=== PATIENT | female | born 1960 | race Caucasian/White ===

== ENCOUNTER 2016-08-15 05:17 | Day surgery (SDC) | payer MEDICAID ==
[2016-08-13 10:34] LABS: BASOPHILS 0.4 % (0.0-2.0); EOSINOPHILS 1.5 % (0-7); IMMATURE GRANULOCYTES 0.2 % (0-5); LYMPHOCYTES 35.9 % (15-50); MCH 30.9 pg (26.0-34.0); MCHC 33.3 g/dL (31.0-37.0); MCV 92.8 fL (80.0-100.0); MEAN PLATELET VOLUME 9.6 fL (7.4-10.4); MONOCYTES 9.8 % (2-11); NEUTROPHILS 52.2 % (40-80); PLATELET COUNT 219 10x3/uL (130-400); RBC 3.88 10x6/uL (4.00-5.40); RDW 12.3 % (11.5-14.5); WBC 5.2 10x3/uL (4.8-10.8)
[~2016-08-15] VITALS: Ht 160 cm; Wt 64.9 kg
[~2016-08-15 05:17] MED LIST: ASPIRIN EC81 M1 PO; ATARAX 25 MG TA25 MG PO; BACLOFEN20 M1 PO; CATAPRES0.1 MG PO; DEPAKOTE250 MG PO; PLAVIX75 MG PO
[2016-08-15 09:02] VITALS: BP 118/76; Ht 160 cm; Wt 64.9 kg
[2016-08-15 09:55] LABS: HCG URINE NEGATIVE (NEGATIVE)
--- NOTE | 2016-08-15 09:59 | NUR ---
0955 PATIENT RESTING AFTER VALIUM.
--- NOTE | 2016-08-15 15:59 | NUR ---
1550 REQUESTED AND PROVIDED COFFEE
--- NOTE | 2016-08-20 08:08 | OP ---
PATIENT NAME: MANJU TEAGUE MEDICAL RECORD: [id number] :64 LOCATION:D.OPS ADMISSION DATE: SURGEON: MANJU ASKEW MD DATE OF OPERATION: 08/15/2016 PREOPERATIVE DIAGNOSES: Abnormal Paps, nondiagnostic colposcopy. POSTOPERATIVE DIAGNOSES: Abnormal Paps, nondiagnostic colposcopy. PROCEDURE: LEEP excision of the ectocervix and endocervical curettage. SURGEON: Manju Askew MD ANESTHESIA: General. FINDINGS: No abnormal areas on the ectocervix. ESTIMATED BLOOD LOSS: Minimal. COMPLICATIONS: None. OPERATIVE NOTE: The patient was taken to the OR and under adequate general anesthesia, prepped and draped in the usual manner for vaginal procedures. With the legs in the floating boot Luis stirrups, the colposcope was used to evaluate the ectocervix using acetic acid solution and Lugol solution. No abnormal staining areas were noted on the ectocervix. Sutures were placed at 9 o'clock and 3 o'clock on the cervix to decrease vaginal cervical bleeding during the procedure. Local anesthetic with epinephrine, lidocaine was used in 4 quadrants to aid in postoperative pain relief and hemostasis. A 15 mm LEEP loop was then used to excise the ectocervix deeply for evaluation of the abnormal Paps. Endocervical curettage was performed obtaining minimal tissue and was sent as a separate specimen. Ball cautery was then used to treat the LEEP bed and margins and provide further hemostasis. Astringent was applied. At the end of procedure, there was no bleeding and the patient went to the recovery area in good condition. TRANSINT:[id number] Voice Confirmation ID: [id number] DOCUMENT ID: [id number] MANJU ASKEW MD at 0808 CC: [id number] DICTATION DATE: 08/15/16 1436 ELECTRONIC MAINTENANCE SUPERVISOR: 08/15/16 1819 [facility] 08/15/[address] [address]
--- NOTE | 2016-09-05 09:08 | HP ---
PATIENT: RAJ TEAGUE MEDICAL RECORD: [id number] ACCOUNT: [id number] LOCATION:[place] : 64 ADMISSION DATE: 08/15/16 HISTORY AND PHYSICAL EXAMINATION HISTORY OF PRESENT ILLNESS: This patient is a 55-year-old white female 1, AB 1, who has undergone colposcopy and endocervical curettage for evaluation of 2 abnormal Pap smears read as low-grade RAGHU, positive HPV virus, biopsies were nondiagnostic and she is scheduled for colposcopy with LEEP and endocervical curettage. MEDICAL HISTORY: DRUG ALLERGIES: BRILINTA AND NORCO. CURRENT MEDICATIONS: Clopidogrel, tramadol, Topamax, baclofen, low dose aspirin, divalproex, atorvastatin, Atarax, zolpidem, clonidine. The patient is currently taking clopidogrel for a neurological procedures and stent and after discussion with her physician who placed the stent she cannot stop the Plavix. FAMILY HISTORY: Noncontributory. REVIEW OF SYSTEMS: No chest pain, no dyspnea. HABITS: 30 years smoking history. PHYSICAL EXAMINATION: VITAL SIGNS: Weight is 143, blood pressure 110/70. HEENT: Unremarkable. LUNGS: Clear. HEART: Regular rate and rhythm. ABDOMEN: Soft and nontender. PELVIC: Examination is current and deferred for anesthesia. EXTREMITIES: No cyanosis, clubbing or edema. NEUROLOGIC: Grossly intact. IMPRESSION: Repetitive abnormal Pap with nondiagnostic colposcopy and endocervical curettage. Currently taking Plavix after stent placement. In view of her history, she needs a LEEP procedure with endocervical curettage under anesthesia to evaluate the abnormal Paps. I have discussed with her the increased bleeding risk with continuing her Plavix and the danger to her with stopping it and we will proceed with the LEEP endocervical curettage, thorough evaluation with colposcope in a.m. She is to continue the Plavix. May require hospitalization for observation after the procedure and a pack will be placed. TRANSINT:[id number] Voice Confirmation ID: [id number] DOCUMENT ID: [id number] 08/30/2016 Edited to fill in [email or web address] [email or web address]. HISTORY AND PHYSICAL [id number] RAJ TEAGUE BRENDA MD at 0908 CC: [id number] DICTATION DATE: 08/14/16 1326 HEAVY RAIL TRAIN OPERATOR: 08/14/16 1457 [facility] 08/15/16 [facility] [address] [place] [address]
== END 2016-08-15 16:45 | disposition home or self-care (01) ==
LOC: D.OPS 05:17 → D.PAN 09:15 → D.OPS 10:15
PROVIDERS: Obstetrics & Gynecology
DX: N87.0 Mild cervical dysplasia (principal); R87.820 Cervical low risk human papillomavirus (HPV) DNA test positive; F17.200 Nicotine dependence, unspecified, uncomplicated; Z79.82 Long term (current) use of aspirin; Z79.02 Long term (current) use of antithrombotics/antiplatelets; Z79.899 Other long term (current) drug therapy; Z88.5 Allergy status to narcotic agent; Z88.8 Allergy status to other drugs, medicaments and biological substances

== ENCOUNTER → 2017-03-26 07:36 | Outpatient (CLI) | payer MEDICAID ==
[2016-08-15 09:02] VITALS: BMI 25.3
== END | disposition home or self-care (01) ==
LOC: D.MRI 07:36
DX: M25.561 Pain in right knee (principal)

== ENCOUNTER → 2017-07-01 07:44 | Outpatient (CLI) | payer MEDICAID ==
[2016-08-15 09:02] VITALS: BMI 25.3
== END | disposition home or self-care (01) ==
LOC: D.MRI 07:44
DX: I67.1 Cerebral aneurysm, nonruptured (principal); R51 Headache